=== PATIENT | female | born 1980 | race Caucasian/White ===

== ENCOUNTER 2018-03-01 14:48 | Emergency (ER) | payer MEDICAID ==
[~2018-03-01] VITALS: Ht 162.6 cm; Wt 84.1 kg
[2018-03-01 15:39] VITALS: BP 143/89
[2018-03-01 16:18] LABS: BASOPHILS # (AUTO) 0.1 X10'3 (0-0.2); BASOPHILS % (AUTO) 0.7 % (0-1); EOSINOPHILS # (AUTO) 0.2 X10'3 (0-0.9); EOSINOPHILS % (AUTO) 2.2 % (0-6); HEMATOCRIT 43.3 % (35.0-45.0); HEMOGLOBIN 14.3 g/dl (12.0-16.0); LYMPHOCYTES # (AUTO) 2.6 X10'3 (1.1-4.8); LYMPHOCYTES % (AUTO) 30.2 % (21-51); MEAN CORPUSCULAR HEMOGLOBIN 28.4 PG (27.0-31.0); MEAN PLATELET VOLUME 8.1 FL (7.4-10.4); MONOCYTES # (AUTO) 0.6 X10'3 (0-0.9); MONOCYTES % (AUTO) 7.4 % (2-12); NEUTROPHILS # (AUTO) 5.2 X10'3 (1.8-7.7); NEUTROPHILS % (AUTO) 59.5 % (42-75); PLATELET COUNT 378 X10'3 (140-440); RED BLOOD COUNT 5.03 X10'6 (4.20-5.60); RED CELL DISTRIBUTION WIDTH 12.7 % (11.5-14.5); WHITE BLOOD COUNT 8.7 X10'3 (4.5-11.0)
[2018-03-01 16:34] LABS: CLARITY,URINE CLEAR (Clear); COLOR,URINE STRAW (Yellow); GLUCOSE, URINE NEGATIVE (Neg); KETONES,URINE 15 mg/dl (Neg); LEUKOCYTE ESTERASE ,URINE NEGATIVE (Neg); NITRITES, URINE NEGATIVE (Neg); OCCULT BLOOD,URINE NEGATIVE (Neg); PROTEIN,URINE NEGATIVE (Neg); UA COLLECTION TYPE CLN CATCH MIDSTREAM; UROBILINOGEN,URINE 0.2 E.U/dL (0.2-1.0)
[2018-03-01 16:34] LABS: ALANINE AMINOTRANSFERASE 20 U/L (12-78); ALBUMIN 4.5 G/DL (3.4-5.0); ALBUMIN/GLOBULIN RATIO 1.2 (1.1-1.5); ALKALINE PHOSPHATASE 60 IU/L (46-116); ANION GAP 11 (8-16); ASPARTATE AMINO TRANSFERASE 11 U/L (10-37); BILIRUBIN,TOTAL 0.4 MG/DL (0.1-1.0); BLOOD UREA NITROGEN 11 MG/DL (7-18); BUN/CREATININE RATIO 16.2 (6.6-38.0); CALCIUM 9.2 MG/DL (8.5-10.1); CHLORIDE 102 MMOL/L (99-107); CREATININE 0.68 MG/DL (0.40-0.90); GLUCOSE 96 MG/DL (70-104); SODIUM 140 MMOL/L (135-145); TOTAL CARBON DIOXIDE 26.9 MMOL/L (24-32); TOTAL PROTEIN 8.4 G/DL (6.4-8.2); eGFR > 90 ML/MIN
[2018-03-01 16:35] LABS: URINE HCG NEGATIVE (NEG)
--- NOTE | 2018-03-01 17:47 | NUR ---
PT STATES, HAD SEXUAL INTERCOURSE 30MINUTES BEFORE PAIN STARTED... PT STATES, THIS HAS HAPPENED BEFORE BUT PAIN NOT BAD THIS EPISODE
== END 2018-03-01 18:40 | disposition home or self-care (01) ==
LOC: ER 14:48
DX: R10.31 Right lower quadrant pain (principal); R10.32 Left lower quadrant pain; R10.2 Pelvic and perineal pain; R11.0 Nausea; J45.909 Unspecified asthma, uncomplicated; Z88.1 Allergy status to other antibiotic agents; Z91.040 Latex allergy status
CPT/HCPCS: 36415; 80053; 81003; 81025; 85025; 99283

== ENCOUNTER 2021-03-05 13:45 | Inpatient (IN) | payer MEDICAID ==
[~2021-03-05] VITALS: Ht 162.6 cm; Wt 90.9 kg
[2021-03-05 16:13] LABS: EOSINOPHILS # (AUTO) 0.3 X10'3 (0-0.9); HEMOGLOBIN 13.9 g/dl (12.0-16.0); MEAN PLATELET VOLUME 7.3 FL (7.4-10.4)
[2021-03-05 16:14] LABS: BASOPHILS # (AUTO) 0.1 X10'3 (0-0.2); BASOPHILS % (AUTO) 0.8 % (0-1); HEMATOCRIT 40.7 % (35.0-45.0); LYMPHOCYTES # (AUTO) 2.1 X10'3 (1.1-4.8); LYMPHOCYTES % (AUTO) 30.3 % (21-51); MEAN CORPUSCULAR HEMOGLOBIN 28.3 PG (27.0-31.0); MEAN CORPUSCULAR HGB CONC 34.2 g/dL (33.0-36.5); MEAN CORPUSCULAR VOLUME 82.7 FL (78-98); MONOCYTES # (AUTO) 0.5 X10'3 (0-0.9); MONOCYTES % (AUTO) 6.6 % (2-12); NEUTROPHILS # (AUTO) 4.1 X10'3 (1.8-7.7); NEUTROPHILS % (AUTO) 58.3 % (42-75); PLATELET COUNT 360 X10'3 (140-440); RED BLOOD COUNT 4.93 X10'6 (4.20-5.60); RED CELL DISTRIBUTION WIDTH 13.8 % (11.5-14.5)
[2021-03-05 16:19] LABS: CLARITY,URINE SLIGHTLY CLOUDY (Clear); COLOR,URINE YELLOW (Yellow); GLUCOSE, URINE NEGATIVE (Neg); KETONES,URINE >=80 mg/dl (Neg); LEUKOCYTE ESTERASE ,URINE NEGATIVE (Neg); NITRITES, URINE NEGATIVE (Neg); OCCULT BLOOD,URINE NEGATIVE (Neg); PH,URINE 5.5 (4.8-8.0); PROTEIN,URINE NEGATIVE (Neg); UROBILINOGEN,URINE 0.2 E.U/dL (0.2-1.0)
[2021-03-05 16:20] LABS: URINE HCG NEGATIVE (NEG)
[2021-03-05 16:22] LABS: ALANINE AMINOTRANSFERASE 73 U/L (12-78); ALBUMIN 4.3 G/DL (3.4-5.0); ALBUMIN/GLOBULIN RATIO 1.2 (1.1-1.5); ALKALINE PHOSPHATASE 95 IU/L (46-116); ANION GAP 10 (8-16); ASPARTATE AMINO TRANSFERASE 29 U/L (10-37); BLOOD UREA NITROGEN 7 MG/DL (7-18); BUN/CREATININE RATIO 9.9 (6.6-38.0); CALCIUM 9.2 MG/DL (8.5-10.1); CHLORIDE 103 MMOL/L (99-107); CREATININE 0.71 MG/DL (0.40-0.90); GLUCOSE 89 MG/DL (70-104); LIPASE 97 U/L (73-393); SODIUM 137 MMOL/L (135-145); TOTAL CARBON DIOXIDE 24.4 MMOL/L (24-32); TOTAL PROTEIN 7.9 G/DL (6.4-8.2); eGFR > 90 ML/MIN
[2021-03-05 16:23] LABS: UA COLLECTION TYPE CLN CATCH MIDSTREAM
[2021-03-05 16:24] LABS: BACTERIA,URINE 2+ /HPF (Neg); RBC,URINE 0-2 /HPF (0-2); SQUAMOUS EPITHELIAL CELL,UR MANY /LPF (FEW); WBC,URINE 0-4 /HPF (0-4)
[2021-03-05 16:25] LABS: MUCUS STRANDS MANY /LPF (Neg)
[2021-03-05] MEDS ORDERED: ONDA8TAB13 PO ×2 (20:29)
[2021-03-05] MEDS ORDERED: TRAM50TA2 PO (20:29)
[2021-03-05] MEDS ORDERED: ondansetron/PF 4mg/2ml inj IV ONE (22:25)
[2021-03-05] MEDS ORDERED: morphine 4 MG/ML inj SYRINge IV ONE (22:25)
[2021-03-06] VITALS (16 sets, daily range): BP systolic 130–154; BP diastolic 70–97
[2021-03-06] MEDS ORDERED: ondansetron/PF 4mg/2ml inj IV PRN ×2 (00:45→11:00)
[2021-03-06] MEDS ORDERED: magnesium 2GM in 50ml NS 50 ML IV PRN (00:45)
[2021-03-06] MEDS ORDERED: mag hydrox/Alum hydrox/simeth 30ml oral suspension PO PRN (00:45)
[2021-03-06] MEDS: normal saline 1000ml 1,000 ML IV SCH ×3 (00:45→20:45)
[2021-03-06] MEDS ORDERED: magnesium hydroxide 30ml (MOM) UD suspension PO PRN (00:45)
[2021-03-06] MEDS ORDERED: potassium CL 10mEq/100ml bag 100 ML IV PRN (00:45)
[2021-03-06] MEDS ORDERED: magnesium 4gm in 100ml NS 100 ML IV PRN (00:45)
[2021-03-06] MEDS ORDERED: potassium Cl 20 mEq SR tablet PO PRN ×2 (00:45)
[2021-03-06] MEDS ORDERED: magnesium Cl slow-release 64mg tablet PO PRN (00:45)
[2021-03-06] MEDS ORDERED: acetaminophen 325mg tablet PO PRN ×2 (00:45)
[2021-03-06] MEDS ORDERED: NO HOME MEDS (01:13)
[2021-03-06] MEDS: heparin, porcine 5000 units/ml vial SQ SCH ×3 (01:56→19:54)
--- NOTE | 2021-03-06 06:54 | NUR ---
Patient in room [facility]. I have received report from BROOKLYN GUZMÁN and had the opportunity to ask questions and assume patient care.
[2021-03-06] MEDS: pantoprazole 40mg Tablet.DR PO SCH (07:30)
[2021-03-06] MEDS: K and/or MAG REPLACEMENT MC SCH ×2 (08:00→19:49)
[2021-03-06] MEDS ORDERED: heparin, porcine 5000 units/ml vial SQ SCH (08:00)
[2021-03-06] MEDS: morphine 2 MG/ML inj. syringe IV PRN ×3 (08:24→20:02)
[2021-03-06] MEDS: piperacillin/tazo 3.375gm/50ml 50 ML IV SCH ×2 (08:36→17:34)
[2021-03-06] MEDS ORDERED: BUPIVAcaine/PF 2.5 mg/ml (0.25%) 30ml vial ONE (10:48)
--- NOTE | 2021-03-06 10:50 | NUR ---
Problems reprioritized. Patient report given, questions answered & plan of care reviewed with BROOKLYN SANCHEZ FROM [facility].
--- NOTE | 2021-03-06 10:52 | NUR ---
TRANSPORT TEAM CALLED OR ANESTHESIOLOGIST SAID THEY WOULD TREAT IN OR Addendum: 03/06/21 at 1054 by Malka Agustin RN Amended: Links added.
[2021-03-06] MEDS ORDERED: morphine 2 MG/ML inj. syringe IV PRN (11:00)
[2021-03-06] MEDS ORDERED: ringers solution, lacted 1,000 ML IV SCH (11:00)
[2021-03-06] MEDS ORDERED: proCHLORperazine 10 MG/2 ml inj IV PRN (11:00)
[2021-03-06] MEDS ORDERED: morphine 4 MG/ML inj SYRINge IV PRN (11:00)
[2021-03-06] MEDS ORDERED: meperidine/PF 25mg/ml syringe IV PRN ×2 (11:00)
[2021-03-06] MEDS ORDERED: midazolam 1 mg/ML 2ml injection ONE (11:16)
[2021-03-06] MEDS ORDERED: propofol inj 20 ML IV ONE (11:17)
[2021-03-06] MEDS ORDERED: fentaNYL /PF 50mcg/ml 5ml ampule ONE (11:17)
[2021-03-06] MEDS ORDERED: rocuronium 10mg/ml inj IV ONE (11:18)
[2021-03-06] MEDS ORDERED: ondansetron/PF 4mg/2ml inj ONE (12:20)
[2021-03-06] MEDS ORDERED: dexamethasone sod phosphate 4mg/ml inj. ONE (12:20)
[2021-03-06] MEDS ORDERED: neostigmine methylsulfate 1 MG/ML 10ml vial ONE (12:21)
[2021-03-06] MEDS ORDERED: glycopyrrolate 0.2mg/ml inj ONE (12:21)
[2021-03-06] MEDS: meperidine/PF 25mg/ml syringe IV PRN ×3 (12:35→13:09)
--- NOTE | 2021-03-06 13:08 | NUR ---
Patient in room [facility]. I have received report from BROOKLYN SANCHEZ FROM [facility] and had the opportunity to ask questions and assume patient care.
--- NOTE | 2021-03-06 13:23 | NUR ---
Report called to receiving nurse. Transferred via [facility] . Special Issues communicated to receiving nurse.AWAKE AND ORIENTED. VITALS STABLE. DRESSINGS DI. STATES PAIN IMPROVING. TO [facility] AT THIS TIME.
[2021-03-06] MEDS: HYDROcodone/acetaminophen 5mg/325mg tablet PO PRN (17:32)
--- NOTE | 2021-03-06 18:35 | NUR ---
Patient in room [facility]. I have received report from Malka BARAHONA and had the opportunity to ask questions and assume patient care.
--- NOTE | 2021-03-06 18:45 | NUR ---
Problems reprioritized. Patient report given, questions answered & plan of care reviewed with BROOKLYN ZARATE.
[2021-03-06] MEDS: temazepam 15mg capsule PO PRN (23:06)
[2021-03-06] MEDS: HYDROcodone/acetaminophen 10/325mg tab PO PRN (23:07)
[2021-03-07] VITALS: BP 136/75
[2021-03-07] MEDS: piperacillin/tazo 3.375gm/50ml 50 ML IV SCH ×4 (00:47→23:23)
[2021-03-07] MEDS: normal saline 1000ml 1,000 ML IV SCH ×3 (00:49→22:01)
[2021-03-07] MEDS: morphine 2 MG/ML inj. syringe IV PRN (01:34)
--- NOTE | 2021-03-07 06:01 | NUR ---
Problems reprioritized. Patient report given, questions answered & plan of care reviewed with Malka BARAHONA.
[2021-03-07 06:06] LABS: BASOPHILS # (AUTO) 0.1 X10'3 (0-0.2); BASOPHILS % (AUTO) 1.4 % (0-1); EOSINOPHILS % (AUTO) 0.1 % (0-6); HEMOGLOBIN 12.1 g/dl (12.0-16.0); LYMPHOCYTES # (AUTO) 1.3 X10'3 (1.1-4.8); LYMPHOCYTES % (AUTO) 14.3 % (21-51); MEAN CORPUSCULAR HEMOGLOBIN 28.6 PG (27.0-31.0); MEAN CORPUSCULAR HGB CONC 34.6 g/dL (33.0-36.5); MEAN CORPUSCULAR VOLUME 82.5 FL (78-98); MEAN PLATELET VOLUME 7.6 FL (7.4-10.4); MONOCYTES # (AUTO) 0.6 X10'3 (0-0.9); MONOCYTES % (AUTO) 7.3 % (2-12); NEUTROPHILS # (AUTO) 6.7 X10'3 (1.8-7.7); NEUTROPHILS % (AUTO) 76.9 % (42-75); PLATELET COUNT 311 X10'3 (140-440); RED BLOOD COUNT 4.24 X10'6 (4.20-5.60); RED CELL DISTRIBUTION WIDTH 13.5 % (11.5-14.5); WHITE BLOOD COUNT 8.8 X10'3 (4.5-11.0)
[2021-03-07 06:15] LABS: ALANINE AMINOTRANSFERASE 216 U/L (12-78); ALBUMIN 3.2 G/DL (3.4-5.0); ALBUMIN/GLOBULIN RATIO 0.9 (1.1-1.5); ALKALINE PHOSPHATASE 88 IU/L (46-116); ANION GAP 10 (8-16); ASPARTATE AMINO TRANSFERASE 145 U/L (10-37); BILIRUBIN,TOTAL 3.2 MG/DL (0.1-1.0); BLOOD UREA NITROGEN 6 MG/DL (7-18); BUN/CREATININE RATIO 9.2 (6.6-38.0); CALCIUM 8.1 MG/DL (8.5-10.1); CHLORIDE 105 MMOL/L (99-107); CREATININE 0.65 MG/DL (0.40-0.90); GLUCOSE 101 MG/DL (70-104); POTASSIUM 4.2 MMOL/L (3.5-5.1); SODIUM 138 MMOL/L (135-145); TOTAL CARBON DIOXIDE 23.4 MMOL/L (24-32); TOTAL PROTEIN 6.9 G/DL (6.4-8.2); eGFR > 90 ML/MIN
--- NOTE | 2021-03-07 06:45 | NUR ---
Patient in room [facility]. I have received report from BROOKLYN ZARATE and had the opportunity to ask questions and assume patient care.
[2021-03-07 07:00] VITALS: BP 117/64
[2021-03-07] MEDS: K and/or MAG REPLACEMENT MC SCH ×2 (08:00→20:00)
[2021-03-07] MEDS: HYDROcodone/acetaminophen 5mg/325mg tablet PO PRN (08:17)
[2021-03-07] MEDS: pantoprazole 40mg Tablet.DR PO SCH (08:17)
[2021-03-07] MEDS: heparin, porcine 5000 units/ml vial SQ SCH (08:18)
--- NOTE | 2021-03-07 09:51 | NUR ---
Sent Dr Connolly this Message via [employer]: re: [address] Agustin... Dr Alston said OK to DC pt home w/ pain meds and to f/u in his office next week. Thanks, Buffy [phone] Addendum: 03/07/21 at 0959 by Buffy Mensah RN DC is postponed d/t pt is to have tests today before DC'g per BROOKLYN Ace. Dr. Connolly is aware.
[2021-03-07 11:00] VITALS: BP 138/78
[2021-03-07] MEDS: HYDROcodone/acetaminophen 10/325mg tab PO PRN ×3 (14:59→23:23)
[2021-03-07 18:00] VITALS: BP 124/74
--- NOTE | 2021-03-07 18:19 | NUR ---
Patient in room [facility]. I have received report from Malka BARAHONA and had the opportunity to ask questions and assume patient care.
--- NOTE | 2021-03-07 18:45 | NUR ---
Problems reprioritized. Patient report given, questions answered & plan of care reviewed with BROOKLYN ZARATE.
[2021-03-07] MEDS: temazepam 15mg capsule PO PRN (23:23)
[2021-03-07 23:32] VITALS: BP 128/72
--- NOTE | 2021-03-08 06:10 | NUR ---
Problems reprioritized. Patient report given, questions answered & plan of care reviewed with Reddy BARAHONA.
[2021-03-08 06:22] LABS: BASOPHILS # (AUTO) 0.1 X10'3 (0-0.2); BASOPHILS % (AUTO) 0.7 % (0-1); EOSINOPHILS # (AUTO) 0.3 X10'3 (0-0.9); EOSINOPHILS % (AUTO) 3.5 % (0-6); HEMATOCRIT 34.2 % (35.0-45.0); HEMOGLOBIN 11.5 g/dl (12.0-16.0); LYMPHOCYTES % (AUTO) 26.3 % (21-51); MEAN CORPUSCULAR HEMOGLOBIN 28.6 PG (27.0-31.0); MEAN CORPUSCULAR HGB CONC 33.7 g/dL (33.0-36.5); MEAN CORPUSCULAR VOLUME 84.8 FL (78-98); MEAN PLATELET VOLUME 7.6 FL (7.4-10.4); MONOCYTES # (AUTO) 0.6 X10'3 (0-0.9); MONOCYTES % (AUTO) 7.6 % (2-12); NEUTROPHILS # (AUTO) 4.6 X10'3 (1.8-7.7); NEUTROPHILS % (AUTO) 61.9 % (42-75); PLATELET COUNT 261 X10'3 (140-440); RED BLOOD COUNT 4.04 X10'6 (4.20-5.60); RED CELL DISTRIBUTION WIDTH 13.5 % (11.5-14.5); WHITE BLOOD COUNT 7.4 X10'3 (4.5-11.0)
[2021-03-08 06:38] LABS: ALANINE AMINOTRANSFERASE 220 U/L (12-78); ALBUMIN 2.8 G/DL (3.4-5.0); ALBUMIN/GLOBULIN RATIO 0.9 (1.1-1.5); ALKALINE PHOSPHATASE 92 IU/L (46-116); ANION GAP 10 (8-16); ASPARTATE AMINO TRANSFERASE 78 U/L (10-37); BILIRUBIN,TOTAL 0.8 MG/DL (0.1-1.0); BLOOD UREA NITROGEN 7 MG/DL (7-18); BUN/CREATININE RATIO 9.6 (6.6-38.0); CALCIUM 7.4 MG/DL (8.5-10.1); CHLORIDE 107 MMOL/L (99-107); CREATININE 0.73 MG/DL (0.40-0.90); GLUCOSE 78 MG/DL (70-104); POTASSIUM 3.7 MMOL/L (3.5-5.1); SODIUM 140 MMOL/L (135-145); TOTAL CARBON DIOXIDE 22.8 MMOL/L (24-32); eGFR 89 ML/MIN
[2021-03-08 07:00] VITALS: BP 136/74
[2021-03-08] MEDS: pantoprazole 40mg Tablet.DR PO SCH (07:32)
[2021-03-08] MEDS: piperacillin/tazo 3.375gm/50ml 50 ML IV SCH (07:32)
[2021-03-08] MEDS: normal saline 1000ml 1,000 ML IV SCH (07:35)
[2021-03-08] MEDS: HYDROcodone/acetaminophen 5mg/325mg tablet PO PRN (07:35)
[2021-03-08 11:00] VITALS: BP 144/86
[2021-03-08] MEDS ORDERED: HYDR-3965 PO (12:21)
--- NOTE | 2021-03-08 13:04 | NUR ---
Discharge instructions given to patient. Patient verbalized understanding of all instructions given to her. Peripheral IV catheter removed, tip intact. Instructed patient to ensure she has all her belongings with her. Written prescription for [place] given to patient.
== END 2021-03-08 13:27 | disposition home or self-care (01) | DRG 263 ==
LOC: ER 13:45 → ED HOLD 03-06 00:48 → SUR 3N 03-06 07:30
PROVIDERS: ADMIT Internal Medicine; ATTEND Internal Medicine
PROC: 0FT44ZZ Resection of Gallbladder, Percutaneous Endoscopic Approach (ICD-10-PCS; principal; 2021-03-06 11:21)
DX: K80.00 Calculus of gallbladder with acute cholecystitis without obstruction (principal); E66.9 Obesity, unspecified; J45.909 Unspecified asthma, uncomplicated; Z20.822 Contact with and (suspected) exposure to COVID-19; R74.01 Elevation of levels of liver transaminase levels; Z68.34 Body mass index [BMI] 34.0-34.9, adult; Z88.8 Allergy status to other drugs, medicaments and biological substances; Z91.040 Latex allergy status
CPT/HCPCS: 36415; 74176; 80053; 81001; 81025; 82948; 83605; 83690; 85025; 87040; 87081; 87635; 99285; A4215; A4618; A7000; G0378; J1100; J1644; J2175; J2250; J2270; J2405; J2543; J2704; J2710; J3010; J3490; J7030; J7120